=== PATIENT | male | born 1995 | race Two or more races ===

== ENCOUNTER 2024-12-08 22:17 | Emergency (ER) | payer MEDICAID, SELFPAY ==
--- NOTE | 2024-12-08 22:21 | EKG_ITS ---
[facility] Test Date: 2024-12-08 Pat Name: JOEL QUINTERO Department: Room: - Gender: Male School Coordinator: : 1995 Requested By: ED Temporary Provider Order Number: [id number] Reading MD: ED Temporary Provider Measurements Intervals [place] Rate: 126 P: 61 CT: 132 QRS: -48 QRSD: 105 T: 4 QT: 292 QTc: 423 Interpretive Statements SINUS TACHYCARDIA LEFT ANTERIOR FASCICULAR BLOCK [QRS AXIS <= -45, QR IN I, RS IN II] ST ELEVATION, PROBABLY EARLY REPOLARIZATION [ST ELEVATION WITH NORMALLY INFLECTED T-WAVE] No previous ECG available for comparison /[id number]/S0/[id number].pdf
[2024-12-08 22:24] VITALS: BP 136/97; PULSE 128; RESP 22; TEMP 36.3; O2SAT 98; BMI 23.1
--- NOTE | 2024-12-09 00:29 | XR_ITS ---
Examination: PA and lateral chest 2 views TECHNIQUE: Upright PA and lateral chest 2 views Exam date: December 09, 2024 0050 hours INDICATIONS: Chest pain today. FINDINGS: Normal heart size. Minimal probable scarring in the left upper lobe. No lobar pneumonia or pulmonary edema. IMPRESSION: No lobar pneumonia or pulmonary edema
--- NOTE | 2024-12-09 00:30 | PD.EDRME ---
Rapid Medical Screening Exam RME Arrival date/time: 12/08/24 22:17 Chief Complaint: Chest Pain Time Seen by Provider: 12/08/24 23:36 Vital signs: Vital Signs Temperature 97.4 F 12/08/24 22:24 Pulse Rate 128 H 12/08/24 22:24 Respiratory Rate 22 H 12/08/24 22:24 Blood Pressure 136/97 H 12/08/24 22:24 Pulse Oximetry (%) 98 12/08/24 22:24 Oxygen Delivery Method Room Air 12/08/24 22:24 Vital signs reviewed by provider: Yes RME Narrative: 29-year-old male presents to the ED with complaint of chest pain. He admits to drinking alcohol and partaking in methamphetamine. He denies any shortness of breath, nausea or vomiting. He has used meth previously without having chest pain. He is here with his spouse who helps with translation as well as the translation line utilized. EKG, chest x-ray, and urine drug screen ordered. I have greeted and performed a focused initial assessment of this patient. A comprehensive ED assessment and evaluation of the patient, analysis of all test results, and completion of the medical decision making process will be conducted by additional ED providers.
[2024-12-09 01:52] LABS: Amphetamine/Methamp Scrn,U Positive (Negative); Barbiturate Screen,Urine Negative (Negative); Benzodiazepines Screen,Urine Negative (Negative); Benzoylecgonine Screen, Ur Negative (Negative); Fentanyl Screen,Urine Negative (Negative); Opiate Screen,Urine Negative (Negative); THC Screen,Urine Negative (Negative)
[2024-12-09 01:54] VITALS: BP 132/88; PULSE 125; RESP 16; TEMP 36.5; O2SAT 97
[2024-12-09] MEDS: ACETAMINOPHEN 500 MG TABLET 1000 MG PO (02:11)
[2024-12-09] MEDS: LORazepam 0.5 MG TABLET 2 MG PO (03:50)
[2024-12-09] MEDS: ASPIRIN 81 MG CHEW 162 MG PO (03:51)
[2024-12-09 04:02] VITALS: BP 131/96; PULSE 104; RESP 18; TEMP 36.4; O2SAT 97
[2024-12-09 06:15] LABS: Alanine Aminotransferase 33 U/L (10-49); Albumin, Serum 4.8 gm/dL (3.5-5.0); Albumin/Globulin Ratio 1.5 (1.2-2.2); Alkaline Phosphatase 85 U/L (46-116); Anion Gap 13 (7-16); Aspartate Amino Transferase 24 U/L (0-34); BUN/Creatinine Ratio 8 Ratio (12-20); Bilirubin,Total 0.8 mg/dL (0.3-1.2); Blood Urea Nitrogen 6 mg/dL (9-23); Calcium 9.2 mg/dL (8.3-10.6); Calcium (Corrected) 9.2 mg/dL (8.5-10.1); Carbon Dioxide 25.3 mMol/L (20.0-31.0); Chloride 104 mMol/L (98-107); Creatine Kinase 312 U/L (34-171); Creatinine (Component) 0.8 mg/dL (0.6-1.3); Estimated Creatinine Clearance 106.2 mL/min (>60); Globulin 3.2 gm/dL (2.3-3.5); Glucose 85 mg/dL (74-106); LDH (Lactate Dehydrogenase) 285 U/L (120-246); Magnesium 2.1 mg/dL (1.6-2.6); Osmolality,Calculated 279 (275-295); Potassium 3.9 mMol/L (3.4-5.1); Sodium 142 mMol/L (136-145); Troponin I < 0.002 ng/mL (0.0-0.045); eGFR > 60 See Note
[2024-12-09 07:03] LABS: B-Type Natriuretic Peptide < 20 pg/mL (0-100)
--- NOTE | 2024-12-09 08:00 | EDNOTE_ITS ---
ED General RME/HPI General Chief complaint: Chest Pain Stated complaint: CHEST PAIN Time Seen by Provider: 12/08/24 23:36 Arrival date/time: 12/08/24 22:17 RME / HPI RME / HPI narrative: 29-year-old male presents to the ED with complaint of chest pain. He admits to drinking alcohol and partaking in methamphetamine. He denies any shortness of breath, nausea or vomiting. He has used meth previously without having chest pain. He is here with his spouse who helps with translation as well as the translation line utilized. EKG, chest x-ray, and urine drug screen ordered. Related Data Home Medications ?Medication ?Instructions ?Recorded ?Confirmed No Known Home Medications 05/22/2405/08 Allergies Allergy/AdvReac Type Severity Reaction Status Date / Time No Known Allergies Allergy Verified 12/08/24 22:18 Review of Systems Review of Systems Systems Reviewed: All systems reviewed, normal except as documented Past Medical History Past Medical History CARDIAC: Negative Congestive Heart Failure RESPIRATORY: Negative Chronic Obstructive Pulmonary Disease (COPD) GENITOURINARY: Negative Renal Disease ENDOCRINE: Negative Diabetes Mellitus Type 1 or Diabetes Mellitus Type 2 Social History SMOKING STATUS: Never smoker ED Exam Narrative Physical exam: Alert and oriented, anxious appearing 29-year-old male, mild acute distress. Vital signs blood pressure 138/97, pulse 128, respirations 22 and nonlabored, temp 97.4, O2 sat 98% on room air. Lungs are clear, tachycardia at 128, regular rhythm. Abdomen is soft and nontender. No pain with AP or lateral chest compression. Moves all extremities well, no pitting pedal edema noted. Course Course Course Narrative: Patient was given aspirin 162 mg chewable. He was also given Tylenol 1 g p.o. EKG G reveals sinus tachycardia at a rate of 126. No STEMI noted per ER physician. Labs reveal: Normal electrolytes, normal kidney function and liver function. Magnesium is normal at 2.1, LDH is mildly elevated at 285. CK is elevated at 312. Troponin is normal at less than 0.002 and BNP is less than 20. Urine drug screen is positive for amphetamines. Patient was also given Ativan 2 mg p.o. to help with his anxiety. Chest x-ray reveals: No acute process. Patient was discharged home in stable and improved condition with a pulse rate of 104, respiratory rate of 18, and with an O2 sat of 97% on room air. Quality Measures none Orders Category Date Time Status EKG (ED ONLY) *Do not use* NOW Care 12/08/24 22:21 Completed EKG (ED Only) Stat Exams 12/08/24 22:21 Draft XR chest 2V Stat Exams 12/09/24 00:29 Completed B-Type Natriuretic Peptide Stat Lab 12/09/24 05:13 Completed CK [Creatine Kinase] Stat Lab 12/09/24 05:13 Completed Comprehensive Metabolic Panel Stat Lab 12/09/24 05:13 Completed Drug Screen,Urine Stat Lab 12/09/24 00:42 Completed LDH (Lactate Dehydrogenase) Stat Lab 12/09/24 05:13 Completed Magnesium Stat Lab 12/09/24 05:13 Completed Troponin I Stat Lab 12/09/24 05:13 Completed Acetaminophen Tab [Tylenol ES Tab] Med 12/09/24 01:52 Discontinued 1,000 mg PO X1 ONE Aspirin Chew Med 12/09/24 03:34 Discontinued 162 mg PO X1 ONE LORazepam [Ativan] Med 12/09/24 03:32 Discontinued 2 mg PO X1 ONE Vital Signs Vital signs: Vital Signs Temperature 97.4 F 12/08/24 22:24 Pulse Rate 128 H 12/08/24 22:24 Respiratory Rate 22 H 12/08/24 22:24 Blood Pressure 136/97 H 12/08/24 22:24 Pulse Oximetry (%) 98 12/08/24 22:24 Oxygen Delivery Method Room Air 12/08/24 22:24 Discharge Plan Plan Patient Disposition: HOME (Self Care) Discharge Disposition comment: Stable & Improved Prescriptions/Referrals Prescriptions/Med Rec: No Action No Known Home Medications Referrals: Sarah Wesley FNP [Primary Care Provider] - In 1 week Problem List Clinical Impression: Chest pain, Methamphetamine abuse Patient/Caregiver Discharge Instructions Education Materials: Understanding Methamphetamine ..., ED Chest Pain, Uncertain Cause, ED Drug Abuse Additional Instructions: Follow-up with your primary care physician in 24 to 48 hours. Return to the ED for any new or worsening symptoms. Print Language: Malagasy Stand Alone Forms: Hina Award Info., Patient Portal Info Letter PA/EDDI Supervising Physician ALEX/EDDI Supervising Physician: Dr. Hamilton MDM Narrative MDM hospital course: 29-year-old male presents to the ED with complaint of chest pain. He admits to drinking alcohol and partaking in methamphetamine. He denies any shortness of breath, nausea or vomiting. He has used meth previously without having chest pain. He is here with his spouse who helps with translation as well as the translation line utilized. EKG, chest x-ray, and urine drug screen ordered. Alert and oriented, anxious appearing 29-year-old male, mild acute distress. Vital signs blood pressure 138/97, pulse 128, respirations 22 and nonlabored, temp 97.4, O2 sat 98% on room air. Lungs are clear, tachycardia at 128, regular rhythm. Abdomen is soft and nontender. No pain with AP or lateral chest compression. Moves all extremities well, no pitting pedal edema noted. Patient was given aspirin 162 mg chewable. He was also given Tylenol 1 g p.o. EKG G reveals sinus tachycardia at a rate of 126. No STEMI noted per ER physician. Labs reveal: Normal electrolytes, normal kidney function and liver function. Magnesium is normal at 2.1, LDH is mildly elevated at 285. CK is elevated at 312. Troponin is normal at less than 0.002 and BNP is less than 20. Urine drug screen is positive for amphetamines. Patient was also given Ativan 2 mg p.o. to help with his anxiety. Chest x-ray reveals: No acute process. Discussed case with Dr. Posey who agrees patient is stable for discharge. Patient was discharged home in stable and improved condition with a pulse rate of 104, respiratory rate of 18, and with an O2 sat of 97% on room air. He was encouraged to avoid alcohol and methamphetamine in the future. He was advised to follow-up with his primary care physician in 24 to 48 hours. He was encouraged to return to the ED for any new or worsening symptoms. Clinical Information Provided by patient and spouse Medical Records Reviewed None Meds/Rx Considered, not Ordered None Labs/Rad/Tests considered, not Ordered None Chronic Illness/Social Conditions which may negatively complicate care or outcome(s)-explain: ETOH/drugs/substance abuse EKG EKG Interpretation narrative: As noted above Lab Interpretation Labs: interpreted by me Lab(s) interpretation(s): As noted above Imaging Imaging interpretation: see narrative above Radiology reports / interpretation(s): As noted above Medication Administration(s) Medication Administration History Discontinued Medications Acetaminophen (Acetaminophen 500 Mg Tablet) 1,000 mg PO X1 ONE Stop: 12/09/24 01:53 Last Admin: 12/09/24 02:11 Dose: 1,000 mg Documented By: EMILY Aspirin (Aspirin 81 Mg Chew) 162 mg PO X1 ONE Stop: 12/09/24 03:35 Last Admin: 12/09/24 03:51 Dose: 162 mg Documented By: SILAS Lorazepam (Lorazepam 0.5 Mg Tablet) 2 mg PO X1 ONE Stop: 12/09/24 03:33 Last Admin: 12/09/24 03:50 Dose: 2 mg Documented By: SILAS As noted above Diagnosis Differential diagnosis: Stable angina, unstable angina, AMI, methamphetamine abuse, EtOH abuse Most likely dx, and/or detailed dx discussion: Methamphetamine and EtOH abuse. Dispositon Disposition: Discharge Home Disposition comments: Patient is stable for discharge
== END 2024-12-09 08:06 | disposition home or self-care (01) ==
PROVIDERS: Physician Assistant; Emergency Provider Emergency Medicine; PCP Nurse Practitioner Family
DX: R07.9 Chest pain, unspecified (principal); F15.10 Other stimulant abuse, uncomplicated; I44.4 Left anterior fascicular block
CPT/HCPCS: 36415; 71046; 80053; 80307; 82550; 83615; 83735; 83880; 84484; 93005; 99283; A9270